=== PATIENT | female | born 1990 | race Caucasian/White ===

== ENCOUNTER 2024-10-14 20:07 | Observation (INO) | payer BC, SELFPAY ==
[2024-10-14 20:27] VITALS: BP 123/72; PULSE 93
--- NOTE | 2024-10-14 20:48 | US_ITS ---
[address] [address] Patient Name: FERNANDO RASHID MRN: [id number] date: 1990 Sex: F Assigned Patient Location: [facility] Current Patient Location: [facility] Accession/Order Number: [id number] Exam Date: 10/14/2024 21:16 Report Date: 10/14/2024 22:32 At the request of: KELSEA ALLISON Procedure: US OB placenta Examination:US OB placenta INDICATION:fall COMPARISON:None. TECHNIQUE:Limited sonography was performed. FINDINGS:There is a single live intrauterine gestation in cephalic present before beats per minute. The placenta is anterior in location and is grade 1. Placenta is unremarkable based on this examination. KEY is 14.8 cm and is within normal limits. Largest pocket of fluid is 5.7 cm. US/US OB placenta IMPRESSION: Single live intrauterine gestation in cephalic presentation. KEY is 14.8 cm. Electronically authenticated by: FRANKLYN MYERS Date: 10/14/2024 22:32
[2024-10-14] MEDS: ACETAMINOPHEN 500 MG TABLET 1000 MG PO (21:06)
== END 2024-10-14 21:45 | disposition home or self-care (01) ==
PROVIDERS: Admitting Provider Obstetrics & Gynecology; PCP Nurse Practitioner Women's Health; Visit Provider Obstetrics & Gynecology
DX: O26.892 Other specified pregnancy related conditions, second trimester (principal); R10.9 Unspecified abdominal pain; O99.891 Other specified diseases and conditions complicating pregnancy; M99.08 Segmental and somatic dysfunction of rib cage; F17.200 Nicotine dependence, unspecified, uncomplicated; Z3A.28 28 weeks gestation of pregnancy; Z3A.27 27 weeks gestation of pregnancy; O99.332 Smoking (tobacco) complicating pregnancy, second trimester
CPT/HCPCS: 59025; 71101; 76815; 99283; G0378; G0379

== ENCOUNTER 2024-10-14 21:53 | Emergency (ER) | payer BC, SELFPAY ==
--- NOTE | 2024-10-14 22:00 | ED.URI1 ---
HPI - URI/Sore Throat General Chief Complaint: Back Pain/Injury Stated Complaint: 28 weeks, severe left side pain already seen [facility] Time Seen by Provider: 10/14/24 21:54 History of Present Illness HPI Narrative: This 34-year-old female who is 28 weeks presents for evaluation of left posterior rib cage pain. The patient states that she was sleeping and woke up to take the dog out. She went outside where it is cold and took the dog outside. She coughed hard and felt a popping sensation in her left posterior rib cage area and has had severe sharp stabbing pain in the left posterior rib cage area since that time. She was seen at [facility] and an ultrasound was performed. She was cleared by [facility] and referred to the emergency department. She admits to tobacco use. She denies any anterior chest pain dizziness or syncope. She is not having any abdominal pain. She states she was given 2 Tylenol with codeine at [facility] but is still having pain. Related Data Home Medications ?Medication ?Instructions ?Recorded ?Confirmed levothyroxine 75 mcg tablet 75 mcg PO DAILY 10/14/24 10/14/24 (Synthroid) Allergies Allergy/AdvReac Type Severity Reaction Status Date / Time ceftriaxone (From Rocephin) Allergy Severe Anaphylaxis Verified 10/14/24 22:16 Review of Systems ROS Status of ROS 10 or more systems reviewed and unremarkable except as noted in history and below [facility] Medical History (Updated 10/14/24 @ 23:30 by Evie Morel MD) Dysautonomia ?G90.1 - Familial dysautonomia [Pedro-Day] (ICD-10) Hypothyroid ?E03.9 - Hypothyroidism, unspecified (ICD-10) Heart palpitations ?R00.2 - Palpitations (ICD-10) Social History Little interest or pleasure in doing things: not at all Feeling down, depressed, or hopeless: not at all Exam Narrative Exam Narrative: Vital signs and Nursing Notes reviewed: Patient is afebrile with a normal pulse, normal blood pressure, she is not hypoxic with pulse ox of 99% on room air General: Awake, alert, oriented, nontoxic but uncomfortable appearing female, she has pain in the left posterior back with breathing and moving HEENT: Normocephalic atraumatic, mucous membranes are moist and pink, eyes are clear, normal conjunctiva, vision is grossly intact, posterior pharynx is normal in appearance. Neck: Supple, no meningeal signs, no anterior or posterior cervical lymphadenopathy Chest: Lungs are clear to auscultation with good air entry, there is no wheezing rhonchi or rales appreciated no accessory muscle use, patient is speaking in complete sentences-no chest wall tenderness to palpation CVS: Regular rate and rhythm S1-S2, no murmurs rubs or gallops, pulses are brisk and equal bilaterally ABD: Gravid, nontender Musc: Tenderness to the left posterior rib cage area to palpation, no crepitus or skin rash noted in this area, no midline bony vertebral thoracic or lumbar tenderness Extremities: Moving all extremities, no lower extremity tenderness or swelling noted, negative Homans' sign, pulses are brisk and equal bilaterally Skin: Normal in appearance without rash,pallor, petechiae or purpura Neuro: No focal deficits Constitutional Vital Signs, click to edit/add: Last Vital Signs Temp 97.5 F L 10/14/24 22:09 Pulse 76 10/14/24 22:09 Resp 20 10/14/24 22:09 BP 117/80 10/14/24 22:09 Pulse Ox 99 10/14/24 22:09 O2 Del Method Room Air 10/14/24 22:09 Course Vital Signs Vital signs: Vital Signs Temperature 97.5 F L 10/14/24 22:09 Pulse Rate 76 10/14/24 22:09 Respiratory Rate 20 10/14/24 22:09 Blood Pressure 117/80 10/14/24 22:09 Pulse Oximetry 99 10/14/24 22:09 Oxygen Delivery Method Room Air 10/14/24 22:09 Temperature 97.5 F L 10/14/24 22:09 Pulse Rate 76 10/14/24 22:09 Respiratory Rate 20 10/14/24 22:09 Blood Pressure 117/80 10/14/24 22:09 Pulse Oximetry 99 10/14/24 22:09 Oxygen Delivery Method Room Air 10/14/24 22:09 MDM - URI/Sore Throat MDM Narrative Medical decision making narrative: This 34-year-old female who is 28 weeks presents for evaluation of acute onset of left-sided posterior lower rib cage area pain. The patient was seen by [facility] and referred to the emergency department. She states that she went outside to let her dog out and coughed hard and felt a popping sensation in her left lower rib cage area. She has had pain in this area since that time as well as pain with deep breathing. She is mildly tender over this area. There was no injury. She does not have any lower extremity pain or swelling. Her vital signs are stable. Her lungs are clear. She had been given 2 Tylenol with codeine at [facility] and referred to the emergency department. This did not help her pain. X-ray of the left ribs and chest was ordered and reviewed by myself. There is no pneumothorax or other notable bony abnormality. She will be given a dose of Oral in the emergency department after consenting to category C medication in and be given 2 Oral to take home to use as needed overnight. She is otherwise referred to her ADMISSION DISCHARGE RN and family physician for further evaluation and treatment. Discharge Plan Discharge Chief Complaint: Back Pain/Injury Clinical Impression: Rib cage region somatic dysfunction Patient Disposition: Home, Self-Care Time of Disposition Decision: 23:29 Condition: Good Prescriptions / Home Meds: No Action levothyroxine [Synthroid] 75 mcg tablet 75 mcg PO DAILY Print Language: Divehi Instructions: Thoracic Back Strain (ED) Referrals: Jacqui Lopez NP [Primary Care Provider] - 1 week
[2024-10-14 22:09] VITALS: BP 117/80; PULSE 76; TEMP 36.4; O2SAT 99; BMI 29.6
--- NOTE | 2024-10-14 22:28 | PC.NURSE ---
Patient coughed and felt pop to left back/rib.
--- NOTE | 2024-10-14 22:31 | PC.NURSE ---
pain with deep breath
--- NOTE | 2024-10-14 22:34 | XR_ITS ---
The [address] [address] Patient Name: FERNANDO RASHID MRN: [id number] date: 1990 Sex: F Assigned Patient Location: ER Current Patient Location: ED.MAIN Accession/Order Number: [id number] Exam Date: 10/14/2024 22:50 Report Date: 10/14/2024 23:30 At the request of: LEDY CAMACHO Procedure: XR ribs LT min 3V w CXR1V EXAM: XR ribs LT min 3V w CXR1V HISTORY: acute onset left posterior rib pain, 28 weeks preg COMPARISON: None. TECHNIQUE: A frontal view of the chest, 3 additional views of the left wrist are performed. FINDINGS: The lungs are symmetrically inflated and clear. No pleural effusion or pneumothorax. Normal heart size. No displaced rib fracture is seen. XR/XR ribs LT min 3V w CXR1V IMPRESSION: The lungs are clear. No acute bony abnormality. Electronically authenticated by: KOURTNEY LONG Date: 10/14/2024 23:30
[2024-10-14] MEDS: HYDROCODONE/ACET 5-325 MG TABLET 1 TAB PO (23:44)
[2024-10-14] MEDS: HYDROCODONE/ACET 5-325 MG TABLET 2 TAB PO (23:44)
== END 2024-10-14 23:56 | disposition home or self-care (01) ==
PROVIDERS: Emergency Provider Emergency Medicine; PCP Nurse Practitioner Women's Health
DX: O99.891 Other specified diseases and conditions complicating pregnancy (principal); O99.333 Smoking (tobacco) complicating pregnancy, third trimester; F17.290 Nicotine dependence, other tobacco product, uncomplicated; Z3A.28 28 weeks gestation of pregnancy; M99.08 Segmental and somatic dysfunction of rib cage
CPT/HCPCS: 71101; 99283